=== PATIENT | male | born 1975 | race Caucasian/White ===

== ENCOUNTER → 2020-09-22 15:06 | Outpatient (BNVA) | payer OTHER, SELFPAY | PROVIDERS: Visit Provider Nurse Practitioner Family | DX: Z20.828 Contact with and (suspected) exposure to other viral communicable diseases (principal) | CPT/HCPCS: 87635 ==

== ENCOUNTER 2024-06-27 17:15 | Outpatient (CLI) | payer OTHER, SELFPAY ==
--- NOTE | 2024-06-27 17:26 | CTR_ITS ---
PROCEDURE INFORMATION: Exam: CT Abdomen With Contrast Exam date and time: 06/27/2024 5:32 PM Age: 48 years old Clinical indication: Abdominal pain; Other: Left lower; Additional info: Abd pain TECHNIQUE: Imaging protocol: Computed tomography of the abdomen with contrast. Radiation optimization: All CT scans at this facility use at least one of these dose optimization techniques: automated exposure control; mA and/or kV adjustment per patient size (includes targeted exams where dose is matched to clinical indication); or iterative reconstruction. Contrast material: OMNI 350; Contrast volume: 100 ml; Contrast route: INTRAVENOUS (IV); COMPARISON: No relevant prior studies available. RADIATION DOSE METRICS: Total DLP (mGy-cm): 731.17 FINDINGS: Liver: Hepatic steatosis. No evidence of focal hepatic lesion. Gallbladder and biliary ducts: Gallbladder is unremarkable. No ductal dilation. Pancreas: Unremarkable. Spleen: Punctate splenic calcification compatible with sequela of a remote granulomatous process. Otherwise grossly unremarkable. Adrenal glands: Unremarkable. Kidneys: No renal parenchymal abnormality. No hydronephrosis or ureteral stone on either side. Stomach and bowel: No evidence of bowel obstruction or perienteric inflammatory changes. Note that the sigmoid and rectum are outside the field of view. Intraperitoneal space: No evidence of free air or fluid collection. Vasculature: No aneurysmal dilatation or dissection of the abdominal aorta Lymph nodes: No adenopathy. Bones/joints: No evidence of acute fracture or aggressive osseous lesion. Soft tissues: No evidence of fluid collection in the superficial soft tissues. CT/CT abdomen w con* [id number] IMPRESSION: 1. No evidence of acute abnormality in the abdomen.
[2024-06-27] MEDS: iohexol 350 mg/mL 500 mL Btl (per mL) IV (17:34)
== END 2024-06-27 17:16 | disposition home or self-care (01) ==
PROVIDERS: Visit Provider Nurse Practitioner Family
DX: R10.9 Unspecified abdominal pain (principal); K76.0 Fatty (change of) liver, not elsewhere classified; D73.89 Other diseases of spleen
CPT/HCPCS: 74160